=== PATIENT | female | born 1995 | race Hispanic/Latino ===

== ENCOUNTER 2022-09-03 06:00 | Inpatient (IN) | payer OTHER ==
[2022-09-03] MEDS ORDERED: Promethazine HCl 25 MG/ML VIAL IM PRN ×2 (06:28→13:27)
[2022-09-03] MEDS ORDERED: hydrALAZINE 20 MG/ML VIAL SLOW IVP PRN ×2 (06:28→21:54)
[2022-09-03] MEDS ORDERED: Butorphanol Tartrate 1 MG/ML VIAL SLOW IVP PRN (06:28)
[2022-09-03] MEDS ORDERED: Ibuprofen 800 MG TAB PO PRN (06:28)
[2022-09-03] MEDS ORDERED: HYDROcodone/Acetaminophen 5/325 mg Tablet PO PRN ×4 (06:28→21:54)
[2022-09-03] MEDS ORDERED: Misoprostol 200 MCG TAB PR PRN (06:28)
[2022-09-03] MEDS ORDERED: Methylergonovine 0.2 MG/ML VIAL IM PRN (06:28)
[2022-09-03] MEDS ORDERED: Ondansetron PF 4 MG/2 ML Vial IVP PRN ×2 (06:28→13:27)
[2022-09-03] MEDS ORDERED: Lidocaine 1% (PF) 30 ML VIAL SC PRN (06:28)
[2022-09-03] MEDS ORDERED: NS w/ Oxytocin 30 units 500 ML IV SCH ×2 (06:30)
[2022-09-03] MEDS ORDERED: Bupivacaine/Epinephrine 0.25% 30 ML VIAL ONE (08:00)
[2022-09-03 08:18] LABS: Hemoglobin 12.8 g/dL (12.0-15.5); Mean Corpuscular Hemoglobin 29.8 pg (27.0-33.0); Mean Corpuscular Volume 87.9 fl (81.6-98.3); Mean Platelet Volume 11.1 fl (7.4-10.4); Platelet Count 219 10x3/uL (150-450); RBC Distribution Width 12.8 % (11.5-14.5); Red Blood Cell (RBC) Count 4.29 10x6/uL (3.90-5.03); White Blood Cell (WBC) Count 7.7 10x3/uL (3.5-10.5)
[2022-09-03 08:24] VITALS: BMI 38.7
[2022-09-03 08:49] LABS: HBSAg Index 0.16 S/CO (0-0.99); Hep B Surf Ag - L&D Non-Reactive S/CO (NonReactive)
[2022-09-03 08:51] LABS: Syphilis Antibody Nonreactive (Nonreactive); Syphilis Antibody Index 0.04 S/CO (<1.00 Non-Reactive)
[2022-09-03] MEDS: Lactated Ringer's 1,000 ML IV SCH ×3 (08:51→13:18)
[2022-09-03] MEDS ORDERED: Fentanyl 2 mcg/Bup 0.1% Cadd 100 ML ONE (12:50)
[2022-09-03] MEDS ORDERED: Moisturizing Cream (Eucerin) 113 GM JAR TOP PRN (13:27)
[2022-09-03] MEDS ORDERED: diphenhydrAMINE 50 MG/ML VIAL IVP PRN (13:27)
[2022-09-03] MEDS ORDERED: Lactated Ringer's 500 ML IV PRN (13:27)
[2022-09-03] MEDS ORDERED: Naloxone HCl 0.4 mg/ml Vial IVP PRN ×2 (13:27)
[2022-09-03] MEDS ORDERED: Acetaminophen 325 MG TAB PO PRN (13:27)
[2022-09-03] MEDS ORDERED: ePHEDrine Sulfate 50 MG/10 ML VIAL SLOW IVP PRN (13:27)
[2022-09-03] MEDS ORDERED: Fentanyl 2 mcg/Bupivacaine 0.1% Cassette 100 ML EPIDURAL SCH (13:30)
[2022-09-03] MEDS ORDERED: Communication Order-Pharmacy FS SCH (13:30)
[2022-09-03] MEDS ORDERED: Milk Of Magnesia 30 ML UDCUP PO PRN (21:54)
[2022-09-03] MEDS ORDERED: Misoprostol 200 MCG TAB VAG PRN (21:54)
[2022-09-03] MEDS ORDERED: Bisacodyl 10 MG SUPP PR PRN (21:54)
[2022-09-03] MEDS ORDERED: Benzocaine-Menthol 82.5 ML CAN TOP PRN (21:54)
[2022-09-03] MEDS ORDERED: Boostrix 0.5 ML (Tdap) VIAL (>/=7 yrs of age) IM ONE (21:54)
[2022-09-03] MEDS: Ibuprofen 800 MG TAB PO SCH (22:11)
[2022-09-03] MEDS ORDERED: Docusate 100 MG CAP PO SCH (22:15)
[2022-09-04] MEDS: Ibuprofen 800 MG TAB PO SCH ×2 (04:56→13:42)
[2022-09-04] MEDS: Ferrous Sulfate 325 MG TAB PO SCH ×2 (07:59→14:31)
[2022-09-04] MEDS ORDERED: Prenatal Vitamin 1 TAB PO SCH (09:00)
[2022-09-04] MEDS ORDERED: Docusate 100 MG CAP PO SCH (09:00)
[2022-09-04 20:51] VITALS: BP 119/72; TEMP 99.2
== END 2022-09-04 20:48 | disposition home or self-care (01) | DRG 807 ==
LOC: CSHLD 06:27 → CSHPP 21:32
PROVIDERS: ADMIT Obstetrics & Gynecology; ATTEND Obstetrics & Gynecology
PROC: 10E0XZZ Delivery of Products of Conception, External Approach (ICD-10-PCS; principal; 2022-09-03)
PROC: 10907ZC Drainage of Amniotic Fluid, Therapeutic from Products of Conception, Via Natural or Artificial Opening (ICD-10-PCS; 2022-09-03)
DX: O80 Encounter for full-term uncomplicated delivery (principal); Z37.0 Single live birth; Z3A.39 39 weeks gestation of pregnancy
CPT/HCPCS: 36415; 51702; 85027; 86780; 86850; 86900; 86901; 87340; J2590; J7120